=== PATIENT | male | born 1960 | race Caucasian/White ===

== ENCOUNTER → 2024-01-27 12:05 | Outpatient (CLI) | payer OTHER, SELFPAY ==
--- NOTE | 2024-01-27 12:08 | DI.RAD.S_ITS ---
PROCEDURE: XR HIP W PEL IF DONE [facility] MIN 4V INDICATIONS: golfball size hard mass @ left hip TECHNIQUE: AP pelvis with lateral view(s) of the bilateral hip(s). COMPARISON: None. FINDINGS: Bones: No fractures or dislocations. Pelvic ring appears intact. No suspicious bony lesions. Soft tissues: The visualized bowel gas pattern is normal. No suspicious soft tissue calcifications. IMPRESSION: No definitive abnormal mass is identified. If concern persists, particularly if masses of soft tissue concern CT is recommended. Dictated by: Vera Call M.D. on 01/27/2024 at 20:07 Approved by: Vera Call M.D. on 01/27/2024 at 20:08
== END ==
PROVIDERS: Referring Provider Physician Assistant; Visit Provider Physician Assistant
DX: R22.42 Localized swelling, mass and lump, left lower limb (principal)
CPT/HCPCS: 73522

== ENCOUNTER → 2024-02-16 13:45 | Outpatient (CLI) | payer OTHER, SELFPAY ==
--- NOTE | 2024-02-16 13:46 | DI.CT.S_ITS ---
PROCEDURE: CT PELVIS W CON INDICATIONS: softball hard mass @ left hip and pain in groin/testicular TECHNIQUE: After the administration of intravenous contrast, 5 mm thick sections acquired from the iliac crests to the symphysis. 5 mm coronal and sagittal reformats were acquired. For radiation dose reduction, the following was used: automated exposure control, adjustment of mA and/or kV according to patient size. COMPARISON: [facility], CR, XR HIP W PEL IF DONE [place] 3TO4V, 01/27/2024, 12:10. FINDINGS: Image quality: Diagnostic Lower abdomen: No small bowel obstruction no pathologic ascites. Bladder: Unremarkable Reproductive organs: Prostate is unremarkable on limited CT evaluation Rectum: Unremarkable Vessels and lymph nodes: No aneurysmal vessel within the field of view or pathologic lymph nodes by size criteria Pelvic wall: Along the outside of the left IT band, there is 19.6 x 5.9 x 13.4 cm fluid collection with thin enhancing wall. There are small foci of fat. Bones: No acute displaced fracture is seen. Background degenerative changes are present. Pelvic ring appears intact. 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 IMPRESSION: Hurst-Ayesha lesion in the left proximal thigh on the outside of the IT band compatible with degloving injury. The fluid collection in this region measures up to 20 cm with small foci of internal fat which could be from fat necrosis. Sterility is indeterminate on imaging, although there are no significant surrounding inflammatory changes. No acute displaced fracture of the proximal femurs are pelvic ring. Other findings above. Dictated by: Darren Schuster M.D. on 02/16/2024 at 16:21 Approved by: Darren Schuster M.D. on 02/16/2024 at 16:36
[2024-02-16 14:11] LABS: Estimated Glomerular Filt Rate > 60 mL/min (>60)
== END ==
PROVIDERS: Radiology Diagnostic Radiology; PCP Physician Assistant; Referring Provider Physician Assistant; Visit Provider Physician Assistant
DX: S70.12XA Contusion of left thigh, initial encounter (principal); R22.42 Localized swelling, mass and lump, left lower limb; M25.559 Pain in unspecified hip
CPT/HCPCS: 36415; 72193; 82565; Q9967

== ENCOUNTER → 2024-03-22 09:55 | Outpatient (CLI) | payer OTHER, SELFPAY ==
[2024-03-22 19:46] LABS: Add Manual Diff / Slide Review NO; Basophils Absolute Auto 0 /uL (0-100); Basophils Percent Auto 0.9 % (0-2); Eosinophils Absolute Auto 100 /uL (0-450); Eosinophils Percent Auto 1.1 % (2-4); Hematocrit 42.1 % (41-53); Hemoglobin 14.1 g/dL (13.5-17.5); Lymphocytes Absolute Auto 1200 /uL (1100-4500); Lymphocytes Percent Auto 23.5 % (25-40); Mean Corpuscular HGB Conc 33.5 % (30-36); Mean Corpuscular Hemoglobin 28.8 PG (26-34); Mean Corpuscular Volume 85.9 fL (80-100); Monocytes Absolute Auto 700 /uL (0-900); Monocytes Percent Auto 12.7 % (3-14); Neutrophils Absolute Auto 3200 /uL (1500-7000); Neutrophils Percent Auto 61.8 % (50-75); Platelet Count 318 X10^3/uL (150-400); Red Cell Distribution Width 15.4 % (11.6-14.8); White Blood Cell Count 5.1 X10^3/uL (4.5-11.0)
[2024-03-23 15:14] LABS: Alanine Aminotransferase 20 IU/L (<50); Albumin 4.8 g/dL (3.5-5.0); Alkaline Phosphatase 61 U/L (38-126); Aspartate Aminotransferase 28 IU/L (17-59); Bilirubin Total 0.7 mg/dL (0.2-1.3); Blood Urea Nitrogen 20 mg/dL (9-20); Calcium 9.8 mg/dL (8.4-10.2); Carbon Dioxide 26 mmol/L (22-32); Chloride 105 mmol/L (98-107); Cholesterol 154 mg/dL (140-199); Estimated Glomerular Filt Rate > 60 mL/min (>60); Globulin 2.4 g/dL (1.7-4.1); Glucose 101 mg/dL (80-110); HDL Cholesterol 54 mg/dL (40-60); HEMOLYSIS < 15 (0-50); LDL Cholesterol Calculated 85 mg/dL (<100); Potassium 4.4 mmol/L (3.4-5.1); Sodium 140 mmol/L (137-145); Total Protein 7.2 g/dL (6.3-8.2); Triglycerides 74 mg/dL (35-150)
[2024-03-23 15:44] LABS: Prostate Specific Antigen Scrn 0.142 ng/mL (0.1-4.0)
== END ==
PROVIDERS: PCP Family Medicine; Visit Provider Family Medicine
DX: Z13.1 Encounter for screening for diabetes mellitus (principal); Z68.39 Body mass index [BMI] 39.0-39.9, adult; Z13.220 Encounter for screening for lipoid disorders; N52.9 Male erectile dysfunction, unspecified; Z13.6 Encounter for screening for cardiovascular disorders; Z12.5 Encounter for screening for malignant neoplasm of prostate
CPT/HCPCS: 80053; 80061; 85025; G0103